=== PATIENT | male | born 1955 | race Caucasian/White ===

== ENCOUNTER 2017-04-03 08:05 | Emergency (ER) | payer SELFPAY ==
--- NOTE | 2017-04-03 08:49 | RAD ---
INDICATION: Intracranial injury COMPARISON: CT brain January 19, 2014 TECHNIQUE: Noncontrast axial source images were acquired from the skull base to the vertex. FINDINGS: Ventricles/sulci: The ventricles and cisterns are normal in size and configuration for age. Brain parenchyma: There is no focal parenchymal finding, evidence of intracranial mass, or intracranial mass effect. Intracranial hemorrhage:None. Extra-axial spaces: There are no abnormal extra axial fluid collections or evidence of extra-axial mass. Calvarium: There is no calvarial fracture or other calvarial abnormality. Scalp: There is no evidence of scalp or extracalvarial soft tissue abnormality. Paranasal sinuses/mastoid: The paranasal sinuses and mastoid air cells are clear. Other: None. IMPRESSION: No acute intracranial findings.
--- NOTE | 2017-04-03 08:54 | RAD ---
INDICATION: Fall. Possible injury COMPARISON: None TECHNIQUE: Noncontrast axial source images was performed from the skull base to the thoracic inlet. Coronal and and sagittal reformatted images were generated. FINDINGS: Vertebrae: There is no fracture or acute focal bony lesion. Alignment: The craniocervical junction appears normal. The cervical vertebrae are normally aligned. Central Canal: There are no significant CT abnormalities of the central canal or foramina. MR imaging is a more sensitive method to evaluate the canal and foramina. Intervertebral disc spaces: There is anterior cervical fusion C5-C7. There is no evidence of hardware failure. The remaining disc spaces are maintained. Brain: The visualized brain appears unremarkable. Soft tissues: The visualized soft tissue elements of the neck are unremarkable. The prevertebral soft tissues appear normal. The lung apices are clear. IMPRESSION: NO ACUTE FINDINGS. ANTERIOR CERVICAL FUSION C5-C7 WITHOUT EVIDENCE OF HARDWARE FAILURE
[2017-04-03] MEDS ORDERED: Ibuprofen TAB* 400 MG PO ONE (08:59)
[2017-04-03 09:12] VITALS: BP 132/66
--- NOTE | 2017-04-04 09:29 | ED ---
Jammie Beltran Edward, scribed for Gokul Vasquez MD on 04/03/17 at 0807 . Adult Trauma - HPI Summary HPI Summary: 61 y/o male presents to the ED c/o PHILIPPE at the back of the head s/p fall. The pain is mostly on the L side of the head with some radiation down the L side of the neck. Pain is rated 2/3 in severity currently. Pt slipped on ice and fell backwards. No LOC. The pain is rated 2-3/10. Denies nausea, blurred vision. Associated sx: numbness around L cheek, L elbow pain, R thumb pain. - History of Current Complaint Stated Complaint: FALL Hx Obtained From: Patient Mechanism of Injury: Fall Loss of Consciousness: no loss of consciousness Onset/Duration: Started Minutes Ago Onset of Pain: Immediate Current Severity: Mild Pain Intensity: 3 Location: Head, Extremities - L elbow Alleviating Factor(s): Nothing Associated Signs & Symptoms: Positive: Numbness/Weakness - L side check. Negative: Loss of Consciousness - Allergy/Home Medications Allergies/Adverse Reactions: Allergies Allergy/AdvReac Type Severity Reaction Status Date / Time Morphine Allergy Severe Altered Verified 04/03/17 08:09 Mental Status Perflutren [From Definity] Allergy Severe Unknown Verified 04/03/17 08:09 Reaction Details Propylene Glycol Allergy Severe Unknown Verified 04/03/17 08:09 [From Definity] Reaction Details Diazepam Allergy Intermediate Hallucinati Verified 04/03/17 08:09 ons Metformin Allergy Intermediate Abdominal Verified 04/03/17 08:09 Pain PMH/Surg Hx/FS Hx/Imm Hx Previously Healthy: No Endocrine/Hematology History: Reports: Hx Diabetes Cardiovascular History: Reports: Hx Myocardial Infarction - 2x - Surgical History Surgery Procedure, Year, and Place: mi with 2 stents - Family History Known Family History: Positive: Cardiac Disease - mother, Diabetes - mother, Other - thyroid disease (mother) - Social History Alcohol Use: Occasionally Hx Substance Use: No Substance Use Type: Reports: None Hx Tobacco Use: No Smoking Status (MU): Never Smoked Tobacco Review of Systems Constitutional: Negative Eyes: Negative ENT: Negative Cardiovascular: Negative Respiratory: Negative Gastrointestinal: Negative Genitourinary: Negative Positive: Arthralgia - L elbow and R thumb Skin: Negative Positive: Headache, Numbness - L side cheek Psychological: Normal All Other Systems Reviewed And Are Negative: Yes Physical Exam - Summary Physical Exam Summary: VITAL SIGNS: Reviewed. GENERAL: Patient is a well-developed and nourished male who is lying comfortable in the stretcher. Patient is not in any acute respiratory distress. HEAD AND FACE: No signs of trauma. No ecchymosis, hematomas or skull depressions. No sinus tenderness. EYES: PERRLA, EOMI x 2, No injected conjunctiva, no nystagmus. EARS: Hearing grossly intact. Ear canals and tympanic membranes are within normal limits. MOUTH: Oropharynx within normal limits. NECK: Supple, trachea is midline, no adenopathy, no JVD, no carotid bruit, no c- spine tenderness, neck with full ROM. CHEST: Symmetric, no tenderness at palpation LUNGS: Clear to auscultation bilaterally. No wheezing or crackles. CVS: Regular rate and rhythm, S1 and S2 present, no murmurs or gallops appreciated. ABDOMEN: Soft, non-tender. No signs of distention. No rebound no guarding, and no masses palpated. Bowel sounds are normal. EXTREMITIES: FROM in all major joints, no edema, no cyanosis or clubbing. NEURO: Alert and oriented x 3. No acute neurological deficits. Speech is normal and follows commands. SKIN: Dry and warm Triage Information Reviewed: Yes Vital Signs On Initial Exam: Initial Vitals Temp Pulse Resp BP Pulse Ox 97.8 F 67 16 130/84 97 04/03/17 08:09 04/03/17 08:09 04/03/17 08:09 04/03/17 08:09 04/03/17 08:09 Vital Signs Reviewed: Yes Diagnostics - Vital Signs Vital Signs Temp Pulse Resp BP Pulse Ox 04/03/17 09:11 98.9 F 89 16 132/66 99 04/03/17 09:00 66 132/66 96 04/03/17 08:57 66 95 04/03/17 08:56 141/74 04/03/17 08:09 97.8 F 67 16 130/84 97 - Laboratory Lab Statement: Any lab studies that have been ordered have been reviewed, and results considered in the medical decision making process. - Radiology BRAIN CT Xray Interpretation: No Acute Changes - NO ACUTE INTRACRANIAL FINDINGS Radiology Interpretation Completed By: Radiologist - ED PHYSICIAN REVIEWS AND AGREES - CT CSPINE CT CT Interpretation: No Acute Changes - NO ACUTE FINDINGS. ANTERIOR CERVICAL FUSION C5-C7 WITHOUT EVIDENCE OF HARDWARE FAILURE CT Interpretation Completed By: Radiologist - ED PHYSICIAN REVIEWS AND AGREES Adult Trauma Course/Dx - Course Assessment/Plan: 61 y/o male presents to the ED c/o PHILIPPE at the back of the head s /p fall. The pain is mostly on the L side of the head with some radiation down the L side of the neck. Pt slipped on ice and fell backwards. No LOC. The pain is rated 2-3/10. Denies nausea, blurred vision. Associated sx: numbness around L cheek, L elbow pain, R thumb pain. CSPINE CT SHOWS NO ACUTE FINDINGS. ANTERIOR CERVICAL FUSION C5-C7 WITHOUT EVIDENCE OF HARDWARE FAILURE. BRAIN CT SHOWS NO ACUTE INTRACRANIAL FINDINGS. In the ED course the pts neurological exam is intact. The pt was given ibuprofen for her PHILIPPE and his sx improved. The pt is ambulating in the ed w/o any help and he has a good steady walk. He will be d/c home with f/u with pcp. Pt was given instructions for head contusion. - Diagnoses Differential Diagnosis/HQI/PQRI: Positive: Contusion(s), Hematoma(s), Sprain, Strain Provider Diagnoses: Head contusion Discharge - Discharge Plan Condition: Stable Disposition: HOME Patient Education Materials: Head Injury (ED), Contusion in Adults (ED) Forms: *Work Release Referrals: Andreas Babb MD [Primary Care Provider] - 4 Days (PLEASE F/U IN 3-5 DAYS NEEDED) The documentation as recorded by the Jammie gaspar Edward accurately reflects the service I personally performed and the decisions made by Pedro sosa Walter, MD.
== END 2017-04-03 09:11 | disposition home or self-care (01) ==
LOC: ED 08:05
DX: S00.93XA Contusion of unspecified part of head, initial encounter (principal); W00.0XXA Fall on same level due to ice and snow, initial encounter; Y93.9 Activity, unspecified; Y92.9 Unspecified place or not applicable; R20.0 Anesthesia of skin; E11.9 Type 2 diabetes mellitus without complications; I25.2 Old myocardial infarction; Z95.5 Presence of coronary angioplasty implant and graft; Z88.5 Allergy status to narcotic agent; Z88.8 Allergy status to other drugs, medicaments and biological substances
CPT/HCPCS: 70450; 72125; 99282; A9270-GY

== ENCOUNTER → 2018-06-20 21:44 | Emergency (ER) | payer BC, OTHER ==
[~2018-06-20 21:44] MED LIST: Famotidine IV* 10 MG/ML 2 ML (20 mg) IV SLOW PU ONE; diPHENhydraMINE IV* 50 MG/ML 1 ml VIAL (BENADRYL) SLOW PUSH ONE; methylPREDNISolone 125 MG* 2 ML VIAL IV ONE
--- NOTE | 2018-06-20 22:27 | ED ---
Skin Complaint - HPI Summary HPI Summary: This patient is a 62 year old M presenting to [facility] with a chief complaint of welts on his neck, upper extremities, axilla, and lower back since 20:30 today. He said he was sitting in a chair when all of a sudden, it felt like someone just threw sand in my eyes. It was when he later went to itch his neck that he realized it had welts. Patient also reports a raspy voice and a pre- existing persistent cough. Patient denies SOB and wheezing. Patient was started on Augmentin yesterday, and he took 3 doses with no symptoms. He was also prescribed Tessalon Perles for the cough. - History of Current Complaint Chief Complaint: EDAllergicReaction Time Seen by Provider: 06/20/18 22:01 Stated Complaint: ALLERGIC REACTION PER PT Hx Obtained From: Patient Onset/Duration: Started Hours Ago, Still Present Skin Exposure Onset/Duration: Hours Ago Timing: Constant Pain Intensity: 0 Skin Location: Other: - Neck, upper extremities, axilla, and lower back Aggravating Symptom(s): Nothing Alleviating Symptom(s): Nothing Associated Signs & Symptoms: Cough - Pre-existing persistent cough, Hoarseness - Raspy voice - Allergy/Home Medications Allergies/Adverse Reactions: Allergies Allergy/AdvReac Type Severity Reaction Status Date / Time diazepam Allergy Hallucinati Verified 06/20/18 21:55 ons morphine Allergy Altered Verified 06/20/18 21:54 Mental Status perflutren [From Definity] Allergy Unknown Verified 06/20/18 21:54 Reaction Details metformin AdvReac Abdominal Verified 06/20/18 21:55 Pain Home Medications: Home Medications Aspirin 81 mg CHEW TAB* 81 mg PO DAILY 06/20/18 [History Confirmed 06/20/18] Atorvastatin Calcium [Lipitor] 80 mg PO DAILY 06/20/18 [History Confirmed ] Canagliflozin (NF) [Invokana (NF)] 300 mg PO DAILY 06/20/18 [History Confirmed 06/20/18] Dulaglutide [Trulicity] 1.5 mg SQ DAILY 06/20/18 [History Confirmed 06/20/18] Glimepiride 2 mg PO BID 06/20/18 [History Confirmed 06/20/18] Isosorbide Mononitrate ER TAB* [Imdur ER TAB*] 120 mg PO DAILY 06/20/18 [ History Confirmed 06/20/18] Levothyroxine TAB* [Synthroid TAB*] 125 mcg PO DAILY 06/20/18 [History Confirmed 06/20/18] Metoprolol Tartrate 50 mg PO DAILY 06/20/18 [History Confirmed 06/20/18] Nitroglycerin TAB 0.4 MG* 0.4 mg SL Q5M PRN 06/20/18 [History Confirmed 06/20/18 ] Omeprazole 40 mg PO DAILY 06/20/18 [History Confirmed 06/20/18] Ramipril 5 mg PO DAILY 06/20/18 [History Confirmed 06/20/18] Ticagrelor* [Brilinta*] 90 mg PO BID 06/20/18 [History Confirmed 06/20/18] PMH/Surg Hx/FS Hx/Imm Hx Endocrine/Hematology History: Reports: Hx Diabetes Cardiovascular History: Reports: Hx Myocardial Infarction - 2x - Surgical History Surgery Procedure, Year, and Place: mi with 2 stents Infectious Disease History: No Infectious Disease History: Denies: Traveled Outside the [place] in Last 30 Days - Family History Known Family History: Positive: Cardiac Disease - mother, Diabetes - mother, Other - thyroid disease (mother) - Social History Alcohol Use: Rare Hx Substance Use: No Substance Use Type: Reports: None Hx Tobacco Use: No Smoking Status (MU): Never Smoked Tobacco Review of Systems Positive: Cough - Pre-existing persistent cough. , Other - Has a raspy voice. Denies wheezing. . Negative: Shortness Of Breath Positive: Rash - "Welts" on neck, upper extremities, axilla, and lower back All Other Systems Reviewed And Are Negative: Yes Physical Exam - Summary Physical Exam Summary: VITAL SIGNS: Reviewed. GENERAL: Patient is a well-developed and nourished MALE who is lying comfortable in the stretcher. Patient is not in any acute respiratory distress. HEAD AND FACE: No signs of trauma. No ecchymosis, hematomas or skull depressions. No sinus tenderness. EYES: PERRLA, EOMI x 2, No injected conjunctiva, no nystagmus. EARS: Hearing grossly intact. Ear canals and tympanic membranes are within normal limits. MOUTH: Oropharynx within normal limits. NECK: Supple, trachea is midline, no adenopathy, no JVD, no carotid bruit, no c- spine tenderness, neck with full ROM. CHEST: Symmetric, no tenderness at palpation LUNGS: Clear to auscultation bilaterally. No wheezing or crackles. CVS: Regular rate and rhythm, S1 and S2 present, no murmurs or gallops appreciated. ABDOMEN: Soft, non-tender. No signs of distention. No rebound, no guarding, and no masses palpated. Bowel sounds are normal. EXTREMITIES: FROM in all major joints, no edema, no cyanosis or clubbing. NEURO: Alert and oriented x 3. No acute neurological deficits. Speech is normal and follows commands. SKIN: Scattered maculopapular rash. Triage Information Reviewed: Yes Vital Signs On Initial Exam: Initial Vitals Temp Pulse Resp BP Pulse Ox 98.5 F 100 20 178/110 96 06/20/18 21:45 06/20/18 21:45 06/20/18 21:45 06/20/18 21:45 06/20/18 21:45 Vital Signs Reviewed: Yes Diagnostics - Vital Signs Vital Signs Temp Pulse Resp BP Pulse Ox 06/20/18 21:45 98.5 F 100 20 178/110 96 - Laboratory Lab Statement: Any lab studies that have been ordered have been reviewed, and results considered in the medical decision making process. Re-Evaluation - Re-Evaluation 1 Re-Evaluation Time: 23:17 Change: Improved Comment: Patient feels better. I informed him that he would be sent home with a dx of an allergic reaction. Course/Dx - Course Course Of Treatment: This patient is a 62 year old M presenting to [facility] with a chief complaint of welts on his neck, upper extremities, axilla, and lower back since 20:30 today. Patient was given medications. Re-eval at 23:17 found that the patient was feeling better. I will d/c home with a dx of an allergic reaction, give him medications, and instruct him not to take Augmentin. He was instructed to follow up with his PCP. - Diagnoses Provider Diagnoses: Allergic reaction to drug Discharge - Sign-Out/Discharge Documenting (check all that apply): Patient Departure - D/C home Patient Received Moderate/Deep Sedation with Procedure: No - Discharge Plan Condition: Stable Disposition: HOME Prescriptions: hydrOXYzine HCL TAB* [Atarax TAB 50 MG *] 50 mg PO TID PRN #20 tab PRN Reason: Itching predniSONE TAB* [Deltasone TAB*] 50 mg PO DAILY #5 tab Patient Education Materials: Antibiotic Medication Allergy (ED) Referrals: Andreas Babb MD [Primary Care Provider] - 3 Days Additional Instructions: Follow up with your PCP in 3 days. Stop taking Augmentin. PLEASE RETURN TO THE ED IMMEDIATELY FOR WORSENING OR CONCERNING SYMPTOMS. - Billing Disposition and Condition Condition: STABLE Disposition: Home - Attestation Statements Document Initiated by Xiang: Yes Documenting Scribe: Oh Newton Provider For Whom Xiang is Documenting (Include Credential): Carmen Allison MD Scribe Attestation: Oh Beltran, scribed for Carmen Allison MD on 06/21/18 at 0552. Scribe Documentation Reviewed: Yes Provider Attestation: The documentation as recorded by the Oh gaspar accurately reflects the service I personally performed and the decisions made by Jesus sosa MD Status of Scribe Document: Viewed
[2018-06-20 23:50] VITALS: BP 136/90
== END | disposition home or self-care (01) ==
LOC: ED 21:44
DX: T50.905A Adverse effect of unspecified drugs, medicaments and biological substances, initial encounter (principal); R05 Cough; R21 Rash and other nonspecific skin eruption; Y92.9 Unspecified place or not applicable; I25.2 Old myocardial infarction; E11.9 Type 2 diabetes mellitus without complications
CPT/HCPCS: 96374; 96375; 99283; J1200; J2930